=== PATIENT | male | born 1985 | race Two or more races ===

== ENCOUNTER 2017-11-19 21:51 | Emergency (ER) | payer SELFPAY ==
[2017-11-19 22:21] LABS: APPEARANCE CLEAR (CLEAR); COLOR YELLOW (YELLOW)
[2017-11-19 22:24] LABS: BACTERIA FEW /hpf (NONE SEEN); BILIRUBIN NEGATIVE (NEGATIVE); EPITHELIAL CELLS RARE /hpf (0-5); GLUCOSE NEGATIVE (NEGATIVE); KETONE NEGATIVE (NEGATIVE); NITRITE POSITIVE (NEGATIVE); PROTEIN NEGATIVE (NEGATIVE); RED CELLS - URINE RARE /hpf (0-5); UROBILINOGEN NORMAL (NORMAL); WHITE CELLS - URINE RARE /hpf (0-5)
== END 2017-11-19 22:49 | disposition home or self-care (01) ==
LOC: D.ER 21:51
PROVIDERS: Family Medicine
DX: N39.0 Urinary tract infection, site not specified (principal)